=== PATIENT | male | born 1970 | race Caucasian/White ===

== ENCOUNTER 2023-06-23 06:38 | Observation (INO) | payer BC, SELFPAY ==
[2023-06-23] VITALS (112 sets, daily range): BP systolic 128–244; BP diastolic 78–135; PULSE 56–110; RESP 6–29; TEMP 36.3–36.8; O2SAT 90–99
--- NOTE | 2023-06-23 06:30 | RT.EKG_ITS ---
APPROVED REPORT Exam: Resting ECG Reason for Exam: Chest pain Patient Location: E HR:104 bpm ECG Measurements Heart Rate 104 AXIS CA 157 P 62 QRSd 97 QRS 38 QT 321 T 163 QTc 423 Conclusion Sinus tachycardia...rate> 99 Probable left atrial enlargement...P >50mS, <-0.10mV V1 Repol abnrm suggests ischemia, anterolateral...ST dep, T neg, I aVL V2-V6 no STEMI posterior EKG requested
--- NOTE | 2023-06-23 06:45 | DI.CT_ITS ---
Exam(s) CT THORAX ABDOMEN CTA EXAM: CT THORAX ABDOMEN CTA CLINICAL HISTORY: HTN SOB L arm numb pulse difference. TECHNIQUE: Imaging Protocol: Axial CT angiography was performed with multi-slice acquisition and mu lti-planar reconstructions as well as axial, coronal and sagittal MIP reconstructions. CONTRAST MATERIAL: Intravenous: Omnipaque 350 Contrast volume:100 ml COMPARISON: No exams were available for comparison FINDINGS: Pulmonary Arteries: No evidence of filling defect to suggest pulmonary emboli. Tracheobronchial tree: No mucous plugging. Mediastinum and Anna: No dominant adenopathy or fluid collection. Pulmonary parenchyma: No consolidation or dominant measurable mass. Pleura: No effusion or pneumothorax. Heart: The heart is not dilated. No coronary artery calcifications are seen. Aorta: Thoracic aorta non-dilated. No dissection. Left subclavian artery not well evaluated due to artifact but caused by in injection of contrast. Gr ossly normal. Upper abdomen: No acute findings. No significant atherosclerotic changes. Vessels are normal in ca liber. Bones: Degenerative changes in the thoracic spine. Tubes, Catheters, and Lines: None Soft tissues: Unremarkable. IMPRESSION: No evidence of pulmonary embolism. No evidence of aortic dissection. No significant atherosclerotic changes. RADIATION DOSE DELIVERED: 936.05mGy.cm Total DLP DATA REPOSITORY: All CT scans at this facility are submitted to the National Radiology Data Registry (NRDR) Dose Index Registry (DIR) with the [employer] (A[employer]). RADIATION OPTIMIZATION: All CT scans at this facility use at least one of these dose optimization te chniques: automated exposure control; mA and/or kV adjustment per patient size (includes targeted exa ms where dose is matched to clinical indication); or iterative reconstruction.
--- NOTE | 2023-06-23 06:45 | RT.EKG_ITS ---
APPROVED REPORT Exam: Resting ECG Reason for Exam: Chest Pain Patient Location: E HR:101 bpm ECG Measurements Heart Rate 101 AXIS [place] 148 P 43 QRSd 89 QRS 14 QT 341 T 48 QTc 443 Conclusion Sinus tachycardia...rate> 99 Anteroseptal infarct, age indeterminate...Q >35mS, T neg, V1-V2 POSTERIOR EKG no STEMI
--- NOTE | 2023-06-23 06:45 | DI.RAD_ITS ---
Exam(s) XR CHEST 1V IN DI DEPT EXAM: XR CHEST 1V IN DI DEPT CLINICAL HISTORY: short of breath TECHNIQUE: 2D digital imaging was performed. COMPARISON: No exams were available for comparison FINDINGS: LUNGS: Clear. No pleural abnormality seen. HEART: Normal size. AORTA: Normal diameter. BONES: Unremarkable for age. Soft tissues: Unremarkable. IMPRESSION: No acute findings. DATA REPOSITORY: RADIATION DOSE DELIVERED:
--- NOTE | 2023-06-23 06:47 | W.ED.GENAD ---
Discharge Plan Discharge Details Chief Complaint: Chest Pain ED Provider: Chelle Espinoza Home Meds and New Rx's Prescriptions: No Action No Known Home Meds HPI General Mode of arrival: ambulatory. Date/Time Provider Initiated Documentation: 06/23/23 06:38. Limitations to Documentation: no limitations. Information obtained by: patient. HPI Narrative: 52yo M with hx asthma, denies any other prior medical history however has not been to a doctor in approximately 15 years, presenting for shortness of breath and left arm numbness. Symptoms started about 30 minutes ago while driving to work. Shortness of breath is severe, came on very suddenly, still present. Left arm numbness also came on suddenly at the same time, is 'tingly', and is somewhat better than when it first started. No chest pain or back pain; does report dull substernal chest pressure. Never had anything like this before. No prior cardiac history. He was in his usual state of health this morning before the onset of symptoms with no fevers, chills, rash, headache, nausea, vomiting, abdominal pain, dysuria, hematuria, or other concerns. Related Data Home Medications Medication Instructions Recorded Confirmed Unknown [No Known Home Meds] 06/23/23 06/23/23 Allergies Allergy/AdvReac Type Severity Reaction Status Date / Time No Known Allergies Allergy Unverified 06/23/23 07:29 Review of Systems Narrative: see HPI Exam Narrative Exam Narrative: General: Alert, moderate distress, diaphoretic Head: Normocephalic, atraumatic Neck: Trachea midline, ?Neck supple. ENT: ?MMM.? Cardiac: ?Tachycardiac, regular,, no murmurs appreciated Resp: Tachycardiac, CTAB Abd: ?Soft, non-distended, nontender : ?No suprapubic tenderness. Extremities: ?No deformities.? No peripheral edema. Neuro: ? GCS 15.? PERRL.? EOMI.? Fluent speech, no dysarthria. Motor- 5/5 strength symmetric bilateral upper and lower extremities including shoulder abductors/adductors, elbow flexors/extensors, wrist flexors/extensors, finger abductors/adductors, hipflexors/extensors, knee flexors/extensors, ankle dorsiflexors and planter flexors. Sensation- ?Intact to light touch and symmetric multiple dermatomes including upper and lower extremities Coordination- No dysmetria on finger to nose CRANIAL NERVES: II: Pupils equal and reactive, III, IV, : EOM intact, no gaze preference or deviation, no nystagmus. V: normal sensation in V1, V2, and V3 segments bilaterally VII: no asymmetry, no nasolabial fold flattening VIII: normal hearing to speech IX, X: normal palatal elevation, no uvular deviation XI: 5/5 head turn and 5/5 shoulder shrug bilaterally XII: midline tongue protrusion Medical Decision Making 52yo M with hx asthma, denies any other prior medical history however has not been to a doctor in approximately 15 years, presenting for shortness of breath and left arm numbness. Symptoms started about 30 minutes ago while driving to work. Associated dull substernal chest pressure. Hypertensive on arrival 216/103, tachycardiac, tachypneic. In moderate distress. EKG sinus tachycardia, ST depressions V3-V6 concerning for posterior STEMI. Posterior EKG performed; no ST elevations to suggest occlusive NM. High suspicion for ACS; aortic dissection also possible. Less likely stroke given shortness of breath and chest discomfort as well as normal neurologic exam; would not give tPA at this time (even if blood pressure was acceptable). Given 325 ASA, and 2 SL nitro without significant effect; started on nitro gtt chest pain/ACS protocol. Taken emergently to CT for dissection/PE study. CT independently reviewed; no large aortic dissection or saddle PE on my view, no significant pulmonary edema. Continued on nitro gtt on return from CT. On reassessment he reports symptoms have markedly improved, chest pressure minimal, breathing feels better, arm feels normal. BP remains elevated with SBP 180-190; suspect hypertensive at baseline, will target symptoms for now rather than MAP goal. Concern remains for ACS vs hypertensive emergency; intraabdominal pathology less likely. Labs pending. Signed out to oncoming physican, plan to followup labs, CT read, and clinical course. Anticipate admission vs transfer for cardiology/laboratory chemist pending results. Lab Data Lab results reviewed: Yes I reviewed the patient's lab results. Labs: Laboratory Tests Range/Units 06/23/23 06:57 WBC (4.4-10.8) 10^3/uL 9.29 RBC (4.36-5.78) 10^6/uL 5.84 H Hgb (13.5-17.5) g/dL 16.2 Hct (40.0-50.0) % 47.5 MCV (80-95) fL 81 MCH (27.0-33.0) pg 27.7 MCHC (32.0-36.0) % 34.1 RDW (11.8-14.1) % 12.6 Plt Count (130-400) 10^3/uL 241 MPV (8.0-11.0) fL 9.0 Immature Gran % % 0.4 Neutrophils % % 72.5 Lymphocytes % % 19.5 Monocytes % % 4.5 Eosinophils % % 2.8 Basophils % % 0.3 Nucleated RBC % (0.0-0.3) % 0.0 Absolute Neutrophils (1.2-6.7) 10^3/uL 6.73 H Absolute Lymphocytes (1.2-3.4) 10^3/uL 1.81 Absolute Monocytes (0.1-0.8) 10^3/uL 0.42 Absolute Eosinophils (0.0-0.7) 10^3/uL 0.26 Absolute Basophils (0.0-0.2) 10^3/uL 0.03 PT (9.1-11.1) sec 10.3 INR (0.9-1.1) 1.0 APTT (23.6-32.8) sec 25.5 Quality:SDOH Health Related Social Needs: No Data to Display Critical Care Time Critical Care Time Critical Care Time: Yes Total Critical Care Time: 31 Attestation: Due to a high probability of clinically significant, life threatening deterioration, the patient required my highest level of preparedness to intervene emergently and I personally spent this critical care time directly and personally managing the patient. This critical care time included obtaining a history; examining the patient; pulse oximetry; ordering and review of studies; arranging urgent treatment with development of a management plan; evaluation of patient's response to treatment; frequent reassessment; and, discussions with other providers. This critical care time was performed to assess and manage the high probability of imminent, life-threatening deterioration that could result in multi-organ failure. It was exclusive of separately billable procedures [facility] Social History Smoking/Tobacco Use Status: Current every day Tobacco Type: smokeless tobacco Smoking risk assessment performed?: Yes
[2023-06-23] MEDS: nitroGLYcerin 0.4 MG TAB (06:55)
[2023-06-23] MEDS: nitroGLYcerin in D5W 50 MG/250 ML BTL 6 MG IV ×2 (07:00→07:19)
[2023-06-23 07:04] LABS: Abs Immature Grans 0.04 10^3/uL (0.0-0.06); Absolute Basophil Count 0.03 10^3/uL (0.0-0.2); Absolute Eosinophil Count 0.26 10^3/uL (0.0-0.7); Absolute Lymphocyte Count 1.81 10^3/uL (1.2-3.4); Absolute Monocyte Count 0.42 10^3/uL (0.1-0.8); Absolute Neutrophil Count 6.73 10^3/uL (1.2-6.7); Basophils % 0.3 %; Eosinophils % 2.8 %; HCT 47.5 % (40.0-50.0); HGB 16.2 g/dL (13.5-17.5); Immature Grans % 0.4 %; Lymphocytes % 19.5 %; MCH 27.7 pg (27.0-33.0); MCHC 34.1 % (32.0-36.0); MCV 81 fL (80-95); Monocytes % 4.5 %; Neutrophils % 72.5 %; Platelet Count 241 10^3/uL (130-400); RBC 5.84 10^6/uL (4.36-5.78); RDW 12.6 % (11.8-14.1); RDW-SD 37.1 fL; WBC 9.29 10^3/uL (4.4-10.8)
[2023-06-23] MEDS: Omnipaque 350 MG/ML 100 ML BTL IJ (07:07)
[2023-06-23] MEDS: Aspirin 81 MG CHEW 324 MG CH (07:17)
[2023-06-23 07:18] LABS: PTT Activated 25.5 sec (23.6-32.8); Prothrombin Time 10.3 sec (9.1-11.1)
[2023-06-23 07:30] LABS: ALT 53 U/L (16-63); AST 29 U/L (15-37); Albumin 4.1 g/dL (3.4-5.0); Alkaline Phosphatase 100 U/L (46-116); Anion Gap 10.2 mmol/L (3-11); BUN 19 mg/dL (7-18); Bilirubin, Total 0.7 mg/dL (0.2-1.0); CO2 28.8 mmol/L (21.0-32.0); CREATININE 1.3 mg/dL (0.70-1.30); Chloride 103 mmol/L (98-107); Glucose 162 mg/dL (74-106); Lipase 32 U/L (16-77); Magnesium 1.9 mg/dL (1.8-2.4); NT-proBNP 95 pg/mL (<300); Sodium 142 mmol/L (136-145); Total Protein 7.6 g/dL (6.4-8.2); Troponin I < 50 ng/L (< or =60)
--- NOTE | 2023-06-23 07:36 | DI.VRAD_ITS ---
PROCEDURE INFORMATION: Exam: CTA Chest With Contrast CTA Abdomen With Contrast Exam date and time: 06/23/2023 7:02 AM Age: 52 years old Clinical indication: Shortness of breath; Patient HX: HTN SOB L arm numb pulse difference TECHNIQUE: Imaging protocol: Computed tomographic angiography of the chest with contrast. Exam focused on the arteries. Computed tomographic angiography of the abdomen with contrast. Exam focused on the arteries. 3D rendering (Not supervised by radiologist): MIP and/or 3D reconstructed images were created by the technologist. COMPARISON: No relevant prior studies available. FINDINGS: VASCULATURE: Pulmonary arteries: Not enlarged. Aorta: No acute aortic abnormality identified. Celiac trunk and mesenteric arteries: No occlusion or significant stenosis. Renal arteries: No occlusion or significant stenosis. Thyroid: 11 mm hypoattenuating nodule in the posterior right lobe of the thyroid. CHEST: Lungs: No significant airspace consolidation concerning for pneumonia. Pleural spaces: Unremarkable. No pneumothorax. No pleural effusion. Heart: Unremarkable. No cardiomegaly. No pericardial effusion. ABDOMEN AND PELVIS: Liver: No mass. Gallbladder and bile ducts: Unremarkable. No calcified stones. No ductal dilation. Pancreas: Unremarkable. No mass. No ductal dilation. Spleen: Small splenule noted. The spleen appears unremarkable. Adrenal glands: Unremarkable. No mass. Kidneys and ureters: Unremarkable. No solid mass. No hydronephrosis. Stomach and bowel: Unremarkable. No obstruction. No mucosal thickening. Intraperitoneal space: Unremarkable. No free air. No significant fluid collection. Lymph nodes: Unremarkable. No enlarged lymph nodes. Bones/joints: Multilevel degenerative changes in the spine. Soft tissues: Unremarkable. IMPRESSION: No acute aortic abnormality identified. Dictated and Authenticated by: Trevor Tello MD. Ordering:MARIA EUGENIA Corbett MD
--- NOTE | 2023-06-23 07:37 | DI.VRAD_ITS ---
PROCEDURE INFORMATION: Exam: XR Chest Exam date and time: 06/23/2023 7:11 AM Age: 52 years old Clinical indication: Shortness of breath; Patient HX: HTN SOB L arm numb pulse difference TECHNIQUE: Imaging protocol: Radiologic exam of the chest. Views: 1 view. COMPARISON: CT THORAX ABDOMEN CTA 06/23/2023 7:02 AM FINDINGS: Lungs: The lung parenchyma is clear. Pleural spaces: No pneumothorax. No large pleural effusion. Heart/Mediastinum: The cardiomediastinal silhouette is within normal limits. Bones/joints: Unremarkable. IMPRESSION: No acute cardiopulmonary abnormality. Dictated and Authenticated by: Trevor Tello MD. Ordering:MARIA EUGENIA Corbett MD
--- NOTE | 2023-06-23 09:43 | W.EDPROG ---
Date of service: 06/23/23 Time of Service: 09:43 Medical Decision Making Patient signed out to me pending delta troponin and dispo. Patient resting comfortably with no pain on nitro drip, BP now 160/80. I cultured meth around 745 to discuss with cardiology about possible transfer for hypertensive emergency and unstable angina, will continue to monitor until I hear back from cardiology Patient is still pain-free at this time and still pending cardiology consult from [facility], did reach back out to [facility] and said that they have a lot of consult pending but they will call when they are available. and will call marco a Second troponin negative, reviewed the case with cardiology PA Kimberley Bertrand and since both tropes negative they do not feel she needs an emergent transfer down, did recommend continuing the IV nitro, given no elevated troponin do not feel heparin indicated. Suggest obtaining an echo and a stress test, will discuss with hospitalist about admission for continued blood pressure control and further testing. Quality:SDOH Health Related Social Needs: No Data to Display Critical Care Time Critical Care Time Critical Care Time: Yes Total Critical Care Time: 60 (minutes) Attestation: Time spent on frequent reassessments, lab review, hemodynamic monitoring in a patient with unstable angina requiring nitro drip for pain and blood pressure control with the potential to deteriorate at any time. Sign Out Sign Out Data: Sign Out Comment: 52yo M, no regular medical care, presents with acute chest pressure/SOB/left arm numbness onset around 0615. Hypertensive, SBP 220-230. Normal neuro exam. EKG no STEMI. Given ASA, nitro x 2, started on nitro gtt. CT for dissection awaiting radiology read; clear lungs, no dissection on my view. Labs pending. FU labs, CT, may need cardiology & transfer for urgent cath. Last updated by Chelle Espinoza MD at 06/23/23 07:35 Discharge Plan Disposition Patient Disposition: Admit to [facility] Condition: Stable Discharge Details Clinical Impression: Hypertensive emergency Primary Care Provider: Mary,Local ED Provider: Jean-Pierre Butler Home Meds and New Rx's Prescriptions: No Action No Known Home Meds
[2023-06-23 10:32] LABS: Troponin I < 50 ng/L (< or =60)
[2023-06-23] MEDS: Losartan 25 MG TAB PO ×2 (12:25→20:26)
[2023-06-23] MEDS: hydroCHLOROthiazide 12.5 MG TAB PO ×2 (12:25→16:03)
[2023-06-23 13:21] LABS: Hemoglobin A1C 5.7 % (<5.7)
[2023-06-23 13:22] LABS: Calculated LDL 144 mg/dL (<100); Cholesterol 216 mg/dL (<200); HDL Cholesterol 50 mg/dL (40-60); Triglyceride 113 mg/dL (<150)
--- NOTE | 2023-06-23 15:35 | HPE_ITS ---
Date of service: 06/23/23 Time of Service: 15:35 Assessment and Plan Assessment and plan (1) Hypertensive emergency: Status: Acute Assessment and plan: Chest pain in setting of severely elevated blood pressure. Now controlled on NTG drop. Can titrate off if he continues to be chest pain free. ARB and thiazide oral medications started, goal to control blood pressure with single combination pill to increase adherence. Titrate up prn. Follow BMP. (2) Chest pain: Status: Acute Assessment and plan: As above. Echo done, report pending. EKG abnormal but troponins reassuring, get one additional level now that we are 10 hours out form onset. Now chest pain free Given baseline EKG abnormal, get MPI stress in AM (3) Chewing tobacco dependence: Status: Acute Assessment and plan: NRT lozenge prn (4) Hyperlipidemia: Status: Acute Assessment and plan: 10 year risk ~ 7% based on lipid panel and current BP. Could consider therapy for primary prevention, undergoing work up for coronary disease as well. 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 (5) Prediabetes: Status: Acute Assessment and plan: A1c 5.7%, discuss lifestyle before discharge. (6) Family history of deep vein thrombosis: Assessment and plan: Get records from brother, consider testing as appropriate. (7) DVT prophylaxis: Status: Acute Assessment and plan: He has been active, ambulatory. Start LMWH if he ends up sedentary for 3+ days History of Present Illness History of Present Illness Chief Complaint: chest pain Narrative: 52 yo M with no medical history, no contact with medical providers in the past 10 years, who presented to the emergency room today with persistent chest pain. He first had chest pain yesterday. 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 No associated symptoms. He kept working and it went away after 5 minutes. This morning he was driving to work at 6am and the pain recurred. This time it was associated with shortness of breath and pounding heart beat. No dizziness, diaphoresis, or nausea. He went to the work site but the pain that started as moderate progressed to more severe, and he came into the ED. The pain resolved after the NTG drip was started in the ED. He denies chest pain currently. He has never had this pain in the past. He is not sure how long his blood pressure has been high. Review of Systems All systems reviewed & are unremarkable except as noted in HPI and below Eyes Eyes: Denies change in vision and Reports itchy eyes (a/w allergies) Cardiovascular Cardiovascular: Denies syncope, Denies pedal edema, Denies irregular heart rhythm, Denies lightheadedness and Denies orthopnea Respiratory Respiratory: Denies chest congestion, Denies cough and Denies hemoptysis Neurologic Neurologic: Denies syncope Allergic/Immunologic Allergic/Immunologic: Reports itchy eyes (a/w allergies) PFSH All Active Problems (Updated 06/23/23 @ 16:10 by Sb Pendleton) Prediabetes (Acute) Hyperlipidemia (Acute) Chest pain (Acute) DVT prophylaxis (Acute) Chewing tobacco dependence (Acute) Hypertensive emergency (Acute) Medical History (Updated 06/23/23 @ 16:10 by Sb Pendleton) Family history of deep vein thrombosis Surgical History (Updated 06/23/23 @ 15:52 by Sb Pendleton) S/P carpal tunnel release with bone spur removal, right wrist Family History (Updated 06/23/23 @ 15:54 by Sb Pendleton) Father Stroke Brother DVT (deep venous thrombosis) genetic issue per patient, patient never tested Social History (Updated 06/23/23 @ 15:56 by Sb Pendleton) Smoking/Tobacco Use Status: Current every day Tobacco Type: smokeless tobacco Tobacco: How many years used: 30 Smokeless tobacco user: chewing tobacco Quit status: not considering quitting Smoking risk assessment performed?: Yes Alcohol Intake: current Alcohol type: beer and hard liquor Drug use: Never Substance use type: does not use Housing: house Additional Social history: 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 Lives with in [facility], kids grown. 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 Meds Allergies and Home Medications Allergies Allergy/AdvReac Type Severity Reaction Status Date / Time No Known Allergies Allergy Unverified 06/23/23 07:29 Home Medications Medication Instructions Recorded Confirmed Type Unknown [No Known Home Meds] 06/23/23 06/23/23 History Exam Narrative Exam Narrative: GEN: Alert and oriented, pleasant and cooperative, gives linear history. No acute distress at rest. HEENT: Head atraumatic. Conjunctiva clear, no icterus. PEERL, EOMI. no rhinorrhea. MMM, OP benign. Neck is supple with no masses or lymphadenopathy, trachea midline LUNGS: CTAB with normal effort CV: RRR with no murmurs, gallops, or rubs. ABD: +BS, soft, NT/ND, no masses/HSM EXT: no cyanosis, clubbing, or edema, not tender to palpation MSK: No joint redness or swelling NEURO: CN 2-12 grossly intact. Normal movement of 4 extremities. DTRs 2+ symmetric patella billy. Normal speech and coordination. no tremor SKIN: No rashes or open wounds. PSYCH: normal mood and affect Results Imaging Chest x-ray: report reviewed and image reviewed (no acute findings) CT scan - chest: report reviewed (No evidence of pulmonary embolism. No evidence of aortic dissection. No significant atherosclerotic changes.) EKG: report reviewed (sinus tachy 104, Nl axis, intervals, ST-T depression V3-6 with inverted T wave, no STEMI, no STEMI on posterior EKG) and image reviewed Labs 06/23/23 06:57 06/23/23 06:57 Labs: Laboratory Results - last 24 hr 06/23/23 06/23/23 06:57 09:55 WBC 9.29 RBC 5.84 H Hgb 16.2 Hct 47.5 MCV 81 MCH 27.7 MCHC 34.1 RDW 12.6 Plt Count 241 MPV 9.0 Immature Gran % 0.4 Neutrophils % 72.5 Lymphocytes % 19.5 Monocytes % 4.5 Eosinophils % 2.8 Basophils % 0.3 Nucleated RBC % 0.0 Absolute Neutrophils 6.73 H Absolute Lymphocytes 1.81 Absolute Monocytes 0.42 Absolute Eosinophils 0.26 Absolute Basophils 0.03 PT 10.3 INR 1.0 APTT 25.5 Sodium 142 Potassium 4.0 Chloride 103 Carbon Dioxide 28.8 Anion Gap 10.2 BUN 19 H Creatinine 1.3 Est GFR (CKD-EPI 2020) 66.10 Glucose 162 H Hemoglobin A1c 5.7 Calcium 9.0 Magnesium 1.9 Total Bilirubin 0.7 AST 29 ALT 53 Alkaline Phosphatase 100 Troponin I < 50 < 50 NT-Pro-B Natriuret Pep 95 Total Protein 7.6 Albumin 4.1 Triglycerides 113 Total Cholesterol 216 H LDL Cholesterol, Calc 144 H HDL Cholesterol 50 Lipase 32 Last Vital Signs Temp 36.7 C 06/23/23 13:18 Pulse 64 05/08/24 14:16 Resp 16 06/23/23 14:16 BP 148/86 H 06/23/23 14:16 Pulse Ox 95 06/23/23 14:16 PAWSS Have you Been Recently Intoxicated or Drunk Within the Last 30 days?: No Have you Ever Experienced Previous Episodes of Alcohol Withdrawal?: No Have you ever Experienced Withdrawal Seizures?: No Have you ever Experienced Delirium Tremens(DT)s?: No Have you ever undergone Alcohol Rehabilitation Treatment (i.e, inpt ot outpatient treatment programs)?: No Have you ever Experienced Blackouts?: No Have you ever Combined Alcohol with other Downers within the last 90 days?: No Have you ever Combined Alcohol with any other Substance of Abuse during the last 90 days?: No Positive Blood Alcohol level on Presentation? [PCS.BAL]: No Evidence of Increased Autonomic Activity (i.e. HR>120, tremor, sweating, agitation, nausea)?: No Result: 0 Time Spent Time spent with Patient: >75 minutes Time was spent: preparing to see the patient(eg.review tests), obtaining and/or reviewing separately otained hiistory, ordering medications,tests, procedures, referring, communicating with other health geriatric personal care aide, indepentently interpreting results, counseling the patient and care coordination
[2023-06-23 16:50] LABS: Troponin I < 50 ng/L (< or =60)
[2023-06-23] MEDS: Atorvastatin 40 MG TAB PO (20:26)
[2023-06-24] VITALS (42 sets, daily range): BP systolic 120–167; BP diastolic 74–107; PULSE 55–104; RESP 7–22; TEMP 36.7–37.1; O2SAT 84–96
--- NOTE | 2023-06-24 | DI.NM_ITS ---
APPROVED REPORT Exam: Exercise Treadmill Patient Location: In-Patient Room/Bed: 220 Stress Nurse: Marisabel Mena RN, Camila Schneider RN Ordering Provider:OSCAR HERNANDEZ, Contact Number: [phone] BMI: 38.01 Baseline Rhythm: Sinus Rhythm Comment: diffuse T wave inversions Indications: hypertensive emergency Medical History Medical History: pt has not been seen by a DR in 15 years Cardiac Medications: nitroglycerin, HCTZ, losartan, aminophylline Allergies: NKDA Cardiac Risk Factors: family hx, prediabetes, HTN, asthma, HLD, chewing tobacco, obesity Previous Cardiac Procedures: none Pretest Chest Pain Characteristics: No chest pain Exercise History: Sedentary Physical Disabilities: none Lung Sounds: clear Heart Sounds: regular Stress Test Details Test: Pharmacologic stress testing performed using 0.4 mg of regadenoson per 5 mL given IV over 10 s econds. Reason for pharmacologic stress test: physical limitation. Nuclear Acquisition: Rest Tc-99m/Stress Tc-99m 1 day Rest Isotope: Tc-99m Sestamibi. Dose: 12.0 Date: 06/24/2023 Injection Time: 0900 Stress Isotope: Tc-99m Sestamibi. Dose: 36.0 Date: 06/24/2023 Injection Time: 1130 HR Resting HR Supine: 77 bpm Max Heart Rate (APMHR): 168.802738 bpm Target HR (85% APMHR): 142.638300 bpm BP Resting BP Supine: 142/88/ mmHg ECG Resting ECG: Sinus Rhythm Comment: diffuse T wave inversions Stress ECG: Sinus Rhythm ST Change: Nondiagnostic low heart rate Recovery ECG: Sinus Rhythm Recovery ST Change: Nondiagnostic low heart rate Comment: diffuse T wave inversions Clinical Stress Symptoms: Headache Angina Score: None Rate Pressure Product: 0 Stress ECG Conclusion 1. Resting electrocardiogram showed left ventricular hypertrophy with repolarization abnormalities 2. Patient underwent testing using pharmacologic stress with regadenoson 3. The electrocardiographic portion of the test was nondiagnostic 4. See MPI report Stress Test Summary STAGE HR BP SpO2 Symptoms NOTES Supine 77 142/88 1 min post Lexiscan injection 88 122/76 94 3 min post Lexiscan injection 75 134/84 93 6 min post Lexiscan injection 73 138/80 93 diffuse T wave inversions noted, no symptoms noted; spoke with Dr Franks, OK to proceed with test MPI Conclusion Myocardial perfusion is normal. There is no ischemia or evidence of prior infarction Calculated ejection fraction is 49%. Visually it appears higher and wall motion is normal Radiologist Interpretation Radiologist Interpretation by: Alex Carrizales MD Interpretation Date/Time: 06/24/2023 17:50:41
[2023-06-24] MEDS: Losartan 25 MG TAB PO (09:10)
[2023-06-24] MEDS: Aspirin 81 MG CHEW PO (09:10)
[2023-06-24] MEDS: hydroCHLOROthiazide 12.5 MG TAB PO ×2 (09:10→16:30)
[2023-06-24] MEDS: Regadenoson 0.4 MG/5 ML SYR IVP (11:08)
--- NOTE | 2023-06-24 11:50 | PDOC.CMIN ---
Date of service: 06/24/23 Time of Service: 11:50 Care Management Initial Assmt Initial Assessment REASON FOR HOSPITALIZATION:: hypertensive emergency PREVIOUS FUNCTIONAL STATUS/SOCIAL/FAMILY SUPPORTS:: Noah lives in [place], [place] with his Renée. They have 3 children but only one daughter lives locally. 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 He does not receive any community services at this time. CURRENT FUNCTIONAL STATUS:: Noah was sitting up in bed visiting with his . He was polite nd agreeable to conversation but not very talkative. Noah requested assistance with the completion of advanced directives. CM provided them both with forms, reviewed the contents with them, witnessed their signatures and made them copies. The advanced directive forms were then faxed to [facility] and the [facility] AD registry. Clinically, Noah is doing well. He stated that he feels well and anticipates being discharged later today or tomorrow as long as his stress test was satisfactory. ADVANCE DIRECTIVES:: none on file but has requested CM assist with completion Has patient been provided with info about the portal/API?: Yes Did the patient sign up for the portal?: No CODE STATUS:: Full Code INSURANCE COVERAGE / FINANCIAL ISSUES:: Medicaid [facility] CURRENT HOME/COMMUNITY SERVICES/EQUIPMENT:: none PRIMARY CARE PHYSICIAN:: none currently POTENTIAL DISCHARGE NEEDS:: establish with PCP PATIENT/FAMILY EDUCATION NEEDS:: Review discharge instructions, activity, limitations, follow up plan, discuss Ask Me Three TRANSPORTATION:: to be determined by disposition PLAN:: Anticipate Noah will be discharged home with no new services unless he requires transfer to a tertiary care facility. He will follow up with the assigned T-doc PCP and plan of care. CM will follow and continue to support discharge planning needs. PFSH All Active Problems (Updated 06/23/23 @ 16:10 by Sb Pendleton) Prediabetes (Acute) Hyperlipidemia (Acute) Chest pain (Acute) DVT prophylaxis (Acute) Chewing tobacco dependence (Acute) Hypertensive emergency (Acute) Medical History (Updated 06/23/23 @ 16:10 by Sb Pendleton) Family history of deep vein thrombosis Surgical History (Updated 06/23/23 @ 15:52 by Sb Pendleton) S/P carpal tunnel release with bone spur removal, right wrist Family History (Updated 06/23/23 @ 15:54 by Sb Pendleton) Father Stroke Brother DVT (deep venous thrombosis) genetic issue per patient, patient never tested Social History (Updated 06/23/23 @ 15:56 by Sb Pendleton) Smoking/Tobacco Use Status: Current every day Tobacco Type: smokeless tobacco Tobacco: How many years used: 30 Smokeless tobacco user: chewing tobacco Quit status: not considering quitting Smoking risk assessment performed?: Yes Alcohol Intake: current Alcohol type: beer and hard liquor Drug use: Never Substance use type: does not use Housing: house Additional Social history: works in [place] for [employer]. Lives with in [facility], kids grown. 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 SDOH(Care Management) Screening Will the Patient Participate in the Screening?: Yes Do you worry about having a steady place to live?: no In the past 12 months, have you had to go without electric, gas, oil or water in your home?: no Have you or anyone in your house had to go without enough food to eat?: no Has lack of transportation kept you from medical appointments or from doing things needed for daily living?: no Has anyone in your support network made you feel unsafe for any reason?: no
--- NOTE | 2023-06-24 18:13 | W.PM.DS.N ---
Date of service: 06/24/23 Time of Service: 18:13 DS: Diagnosis Discharge Diagnosis (1) Hypertensive emergency: Status: Acute (2) Chest pain: Status: Acute (3) Chewing tobacco dependence: Status: Acute (4) Hyperlipidemia: Status: Acute (5) Prediabetes: Status: Acute (6) Family history of deep vein thrombosis: (7) Hypertension: Status: Chronic Discharge Plan Disposition Patient Disposition: Home Condition: Good Discharge Details Reason For Visit: Hypertensive emergency, chest pain Admit Date/Time: 06/23/23 12:05 Admit Provider: Sb Pendleton Attending Provider: Sb Pendleton [facility] Course: 52 yo M with no medical care in 10+ years who presented with left sided chest pain associated with shortness of breath and systolic blood pressure in as high as 244. He was started on NTG drip with resolution of chest pain and improvement of blood pressure. EKG showed some ST depressions but no elevation. Troponins were negative. Echo showed mild LV thickening but normal LVEF. NTG was discontinued the first night without any further chest pain the next day. ETT with MPI was priliminarily read by Dr. Franks as negative. After discussion about waiting for initial read vs going home, he elected to go home. He was started on oral losartan and HCTZ and sent home with a prescription for this. His A1c was in pre-diabetic range at 5.7%. His lipid panel was done and he was started on aspirin and atorvastatin, can discuss continuation of this with his new primary care provider. He should also have follow up BMP after initiating ARB/thiazide. Chewing tobacco cessation was discussed. Home Meds and New Rx's Prescriptions: New atorvastatin 40 mg Tablet 40 mg PO QPM Qty: 30 3RF aspirin [Children's Aspirin] 81 mg Tablet,Chewable 81 mg PO DAILY Qty: 0 0RF irbesartan-hydrochlorothiazide 150-12.5 mg tablet 1 tab PO DAILY Qty: 30 0RF Discharge Instructions Instructions: Chronic Hypertension (GEN) Additional Instructions: I sent a combiation blood pressure medication similar to what you were taking here. You may need to adjust this dose I sent cholesterol medication to prevent heart disease. I want you to take a baby aspirin until the test results are finalized. You can stop this if the heart tests are all reassuring. You had slight pre-diabetic level of sugar testing. You can prevent diabetes with low carbohydrated diet and exercise. You need to follow up with a primary care close to home. You need blood testing within the month Come back to ED if you get more chest pain Referrals: No,Local [Primary Care Provider] - (Patient will call insurance and arrange for a PCP, they are not local to the area, reside in [place]. TORSTEN, RN) Activity:: Activity as Tolerated Equipment/Supplies:: No Equipment Needed Diet:: Carb Counting Discharge Orders Discharge Orders: Discharge Order (Routine); Ordered 06/24/23 Ordered By: Sb Pendleton DS: Summary Time Spent with Patient providing and/or coordinating discharge services: Greater than 30 minutes Status at Discharge Functional status at discharge: independent ambulation Overall status at discharge: patient is back to baseline Mental Status: mental status grossly normal Speech and Movement: speech and movement normal Mood: congruent mood Affect: normal affect Quality:SDOH Health Related Social Needs: No Data to Display Exam Narrative Exam Narrative: GEN: Alert and oriented, No acute distress at rest. LUNGS: CTAB with normal effort CV: RRR with no murmurs, gallops, or rubs. EXT: no cyanosis, clubbing, or edema, not tender to palpation PSYCH: normal mood and affect Psych Mental Status: mental status grossly normal Speech and Movement: speech and movement normal Mood: congruent mood Affect: normal affect DS: Data Vitals/I&O Vitals and I&O: Vital Signs Temperature 36.8 C 06/24/23 15:01 Temperature Source Temporal Artery Scan 06/24/23 15:01 Pulse 64 06/24/23 15:05 Pulse 72 06/24/23 15:05 Respiratory Rate 14 06/24/23 15:05 Respiratory Effort Normal 06/24/23 15:01 Respiratory Depth Normal 06/24/23 15:01 Respiratory Pattern Normal 06/24/23 15:01 Blood Pressure 145/92 H 06/24/23 15:05 Blood Pressure Mean 108 06/24/23 15:05 Blood Pressure Position Supine 06/24/23 07:10 Pulse Oximetry 94 06/24/23 15:05 Oxygen Delivery Method Room Air 06/24/23 07:10 Oxygen Flow Rate 0 06/24/23 07:10 Pain Level 0 06/24/23 07:10 Intake & Output 06/23/23 06/24/23 06/24/23 23:59 11:59 23:59 Intake Total 295.125 / 300.425 240 / 600 360 / 600 Output Total 575 / 575 550 / 950 400 / 950 Balance -279.875 / -274.575 -310 / -350 -40 / -350 Weight 120.6 kg Intake: IV 55.125 / 60.425 0 / 0 Oral 240 / 240 240 / 600 360 / 600 Output: Urine 575 / 575 550 / 950 400 / 950 Other: Urine Color Yellow Light Viviana Light Viviana Urine Appearance Cloudy Clear Clear Urine Odor Normal Normal Comment Voiding clear urine in urinal Voiding Methods Urinal PFSH All Active Problems (Updated 06/24/23 @ 18:13 by Sb Pendleton) Hypertension (Chronic) Prediabetes (Acute) Hyperlipidemia (Acute) Chest pain (Acute) DVT prophylaxis (Acute) Chewing tobacco dependence (Acute) Hypertensive emergency (Acute) Medical History (Updated 06/24/23 @ 18:13 by Sb Pendleton) Family history of deep vein thrombosis Surgical History (Updated 06/23/23 @ 15:52 by Sb Pendleton) S/P carpal tunnel release with bone spur removal, right wrist Family History (Updated 06/23/23 @ 15:54 by Sb Pendleton) Father Stroke Brother DVT (deep venous thrombosis) genetic issue per patient, patient never tested Social History (Updated 06/23/23 @ 15:56 by Sb Pendleton) Smoking/Tobacco Use Status: Current every day Tobacco Type: smokeless tobacco Tobacco: How many years used: 30 Smokeless tobacco user: chewing tobacco Quit status: not considering quitting Smoking risk assessment performed?: Yes Alcohol Intake: current Alcohol type: beer and hard liquor Drug use: Never Substance use type: does not use Housing: house Additional Social history: works in [place] for [employer]. Lives with in [facility], kids [employer]. 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 Time Spent with Patient Time Spent with Patient: 45-69 minutes Time was spent: preparing to see the patient(eg.review tests), obtaining and/or reviewing separately otained hiistory, ordering medications,tests, procedures, referring, communicating with other health health care facilities inspector, indepentently interpreting results, counseling the patient and care coordination
[2023-06-24] MEDS: Atorvastatin 40 MG TAB PO (18:38)
== END 2023-06-24 18:40 | disposition home or self-care (01) | DRG 305 ==
LOC: ER 12:39 → ICU 06-24 10:52
PROVIDERS: Student in an Organized Health Care Education/Training Program; Admitting Provider Family Medicine; Emergency Provider Emergency Medicine; Visit Provider Family Medicine
DX: I16.1 Hypertensive emergency (principal); R07.89 Other chest pain; E78.5 Hyperlipidemia, unspecified; R73.03 Prediabetes; I10 Essential (primary) hypertension; J45.909 Unspecified asthma, uncomplicated; F17.220 Nicotine dependence, chewing tobacco, uncomplicated
CPT/HCPCS: 00123; 36415; 71275; 74175; 78452; 80053; 80061; 83690; 93005; 96365; 96366; 96375; 99291; 71045; 83036; 83735; 83880; 84484; 85025; 85610; 85730; 93010; 93017; 93306; 99223; 99239; G0378; J2305; J2785; J3490